=== PATIENT | female | born 1985 | race Caucasian/White ===

== ENCOUNTER 2022-07-27 08:18 | Inpatient (IN) | payer BC ==
[2022-07-27] MEDS ORDERED: Ondansetron PF 4 MG/2 ML Vial IVP PRN ×3 (08:23→18:02)
[2022-07-27] MEDS ORDERED: Promethazine HCl 25 MG/ML VIAL IM PRN ×2 (08:23→09:43)
[2022-07-27] MEDS ORDERED: Lidocaine 1% (PF) 30 ML VIAL SC PRN (08:23)
[2022-07-27] MEDS ORDERED: hydrALAZINE 20 MG/ML VIAL SLOW IVP PRN ×2 (08:23→18:02)
[2022-07-27] MEDS ORDERED: NS w/ Oxytocin 30 units 500 ML IV SCH ×2 (08:30→08:45)
[2022-07-27] MEDS: Lactated Ringer's 1,000 ML IV SCH ×2 (08:30→12:25)
[2022-07-27] MEDS ORDERED: Fentanyl 2 mcg/Bup 0.1% Cadd 100 ML ONE (08:31)
[2022-07-27] MEDS ORDERED: Penicillin G Potassium 5 MILL.UNITS VIAL ONE (08:32)
[2022-07-27] MEDS ORDERED: Diphenoxylate HCl/Atropine Tablet PO PRN (08:38)
[2022-07-27] MEDS ORDERED: HYDROcodone/Acetaminophen 5/325 mg Tablet PO PRN ×3 (08:38→18:02)
[2022-07-27] MEDS ORDERED: Butorphanol Tartrate 1 MG/ML VIAL SLOW IVP PRN (08:38)
[2022-07-27] MEDS ORDERED: Carboprost 250 MCG/ML AMP IM PRN (08:38)
[2022-07-27] MEDS ORDERED: Methylergonovine 0.2 MG/ML VIAL IM PRN (08:38)
[2022-07-27] MEDS ORDERED: Misoprostol 200 MCG TAB PR PRN (08:38)
[2022-07-27] MEDS ORDERED: Penicillin G Potassium 5 MILL.UNITS in Sodium Chloride 0.9% 100 ML IVPB SCH (08:45)
[2022-07-27 09:00] LABS: Hemoglobin 13.7 g/dL (12.0-15.5); Mean Corpuscular HGB CONC 34.2 g/dL (32.0-36.0); Mean Corpuscular Hemoglobin 30.2 pg (27.0-33.0); Mean Corpuscular Volume 88.3 fl (81.6-98.3); Mean Platelet Volume 9.6 fl (7.4-10.4); Platelet Count 208 10x3/uL (150-450); RBC Distribution Width 13.9 % (11.5-14.5); Red Blood Cell (RBC) Count 4.54 10x6/uL (3.90-5.03); White Blood Cell (WBC) Count 8.4 10x3/uL (3.5-10.5)
[2022-07-27 09:05] VITALS: BMI 30.9
[2022-07-27 09:35] LABS: HBSAg Index 0.23 S/CO (0-0.99); Hep B Surf Ag Non-Reactive S/CO (NonReactive); Syphilis Antibody Nonreactive (Nonreactive); Syphilis Antibody Index 0.04 S/CO (<1.00 Non-Reactive)
[2022-07-27] MEDS ORDERED: Moisturizing Cream (Eucerin) 113 GM JAR TOP PRN (09:43)
[2022-07-27] MEDS ORDERED: Acetaminophen 325 MG TAB PO PRN (09:43)
[2022-07-27] MEDS ORDERED: Lactated Ringer's 500 ML IV PRN (09:43)
[2022-07-27] MEDS ORDERED: diphenhydrAMINE 50 MG/ML VIAL IVP PRN (09:43)
[2022-07-27] MEDS ORDERED: ePHEDrine Sulfate 50 MG/10 ML VIAL SLOW IVP PRN (09:43)
[2022-07-27] MEDS ORDERED: Naloxone HCl 0.4 mg/ml Vial IVP PRN ×2 (09:43)
[2022-07-27] MEDS ORDERED: Communication Order-Pharmacy FS SCH (09:45)
[2022-07-27] MEDS ORDERED: Fentanyl 2 mcg/Bupivacaine 0.1% Cassette 100 ML EPIDURAL SCH (09:45)
[2022-07-27] MEDS ORDERED: Bupivacaine/Epinephrine 0.25% 30 ML VIAL ONE (11:00)
[2022-07-27 12:04] LABS: SARS-CoV-2 NAA Rapid Test Not Detected (NotDetected)
[2022-07-27] MEDS: Penicillin G 2.5 MILL.units 2.5 MILL.UNITS in Premix Bag 1 BAG IVPB SCH (12:24)
[2022-07-27] MEDS ORDERED: Ibuprofen 800 MG TAB PO SCH (18:00)
[2022-07-27] MEDS ORDERED: Milk Of Magnesia 30 ML UDCUP PO PRN (18:02)
[2022-07-27] MEDS ORDERED: Bisacodyl 10 MG SUPP PR PRN (18:02)
[2022-07-27] MEDS ORDERED: Lanolin Ointment 7 GM TUBE TOP PRN (18:02)
[2022-07-27] MEDS ORDERED: Preparation H Ointment 28 GM TUBE PR PRN (18:02)
[2022-07-27] MEDS ORDERED: diphenhydrAMINE 25 MG CAP PO PRN (18:02)
[2022-07-27] MEDS ORDERED: Benzocaine-Menthol 82.5 ML CAN TOP PRN (18:02)
[2022-07-27] MEDS ORDERED: Boostrix 0.5 ML (Tdap) VIAL (>/=7 yrs of age) IM ONE (18:02)
[2022-07-28] MEDS: Docusate 100 MG CAP PO SCH ×2 (02:26→08:15)
[2022-07-28] MEDS: Ibuprofen 800 MG TAB PO SCH ×3 (02:26→10:28)
[2022-07-28] MEDS: Penicillin G 2.5 MILL.units 2.5 MILL.UNITS in Premix Bag 1 BAG IVPB SCH (04:06)
[2022-07-28] MEDS: Acetaminophen 500 MG TAB PO PRN ×2 (08:15→13:24)
[2022-07-28] MEDS: Ferrous Sulfate 325 MG TAB PO SCH ×2 (08:17→09:53)
[2022-07-28] MEDS ORDERED: Prenatal Vitamin 1 TAB PO SCH (09:00)
[2022-07-28 12:00] VITALS: BP 111/79; TEMP 98
== END 2022-07-28 17:50 | disposition home or self-care (01) | DRG 807 ==
LOC: CSHLD 08:18 → CSHPP 07-28 00:07
PROVIDERS: ADMIT Student in an Organized Health Care Education/Training Program; ATTEND Student in an Organized Health Care Education/Training Program
PROC: 10E0XZZ Delivery of Products of Conception, External Approach (ICD-10-PCS; principal; 2022-07-27)
DX: O99.824 Streptococcus B carrier state complicating childbirth (principal); Z37.0 Single live birth; Z3A.37 37 weeks gestation of pregnancy; Z20.822 Contact with and (suspected) exposure to COVID-19; O69.81X0 Labor and delivery complicated by cord around neck, without compression, not applicable or unspecified
CPT/HCPCS: 51702; 85027; 86780; 86850; 86900; 86901; 87340; 99285; J2540; J2590; J3490; J7120; U0002